=== PATIENT | female | born 1990 | race Caucasian/White ===

== ENCOUNTER → 2017-12-06 14:49 | Observation (INO) ==
--- NOTE | 2017-12-06 14:49 | Discharge Summary ---
Date of Encounter: 12/06/17 Time of Encounter: 14:48 - Discharge Diagnosis (1) 21 weeks gestation of Priority: Primary Status: Acute Comments: Follow-up with Dr. Branch on as scheduled labor parameters discussed Discharge home (2) Round ligament pain Priority: Secondary Status: Acute Comments: We discussed heat, massage, Tylenol to relieve pain - Discharge Medications Allergies/Adverse Reactions: Allergy/AdvReac Type Severity Reaction Status Date / Time No Known Allergies Allergy Verified 04/18/16 14:43 Data Procedures and tests throughout hospitalization: Laboratory Tests 12/06/17 14:30 Ur Drug Screen Interp See Below Labs on day of discharge: Labs from last 24 hours 12/06/17 14:30 Ur Drug Screen Interp See Below Date of admission: 12/06/17 13:16 Primary care physician: PCP NONE Discharging clinician: Grace Milton Anticipated date of discharge: 12/06/17 - Patient Status Disposition: Home, Self-Care Condition: Good Functional capacity at discharge: independent ambulation Overall status at discharge: patient is progressing back to baseline - Discharge Instructions Follow Up With: NONE,PCP [Primary Care Provider] - Keily Branch DO [Partnered Physician] - Additional Instructions: LABOR AND DELIVERY DISCHARGE INSTRUCTIONS Signs and Symptoms to be Reported to your Doctor Immediately: * Sudden gush, continuous or intermittent lead of fluid from vagina (note the time of gush and color of fluid) * Onset of bright red vaginal bleeding with or without pain (if you had a vaginal exam during this visit you may notice some dark red spotting. This is normal.) * Lower abdominal cramping or backache that is premenstrual-like feeling. * More than 6 contractions in one hour. * Burning during urination, having to urinate more frequently or pain in your m id-back. * A change in the baby's activity. This could be an increase or decrease in activity. * Severe headache which does not go away with tylenol. * Sudden swelling in the face, hands, arms and/or legs. * Upper abdominal pain - sometimes associated with heartburn or nausea and is not relieved by Maalox, Mylanta or Tums. * Dizziness or blurred vision or visual disturbances (seeing stars/lights). * Kick Counts One hour after a meal, lay down on one side in a quiet place. Count the number of adrienne the baby moves during an hour. If less than 6 movements, notify your physician. Diet: *Force fluids - 8-10 tall glasses of fluid per day. May include popsicles and jello. *Limit caffeine - this includes chocolate, coffee, tea, any soft drink containing such as all jaida, Jalil Yellow and Mountain Dew - Diet and Activity Activity: increase activity as tolerated Diet: regular diet Hospital Course [employer] Reason for admission: other Discharge diagnosis: other Hospital course: Ms. Isidro presents with a one-day history of right lower quadrant pain corresponding with the location of her round ligament. She denies fever, chills, nausea, vomiting, diarrhea. She verses good movement and denies leakage of fluid, vaginal bleeding, contractions. We discussed measures to relieve round ligament pain and advised her to follow up with Dr. Sarina CHATMAN. Time Attestation: Total time spent providing and/or coordinating discharge services: Time Spent: Less than 30 minutes Exam - Constitutional General appearance IM: A&O X 3 - Respiratory Respiratory exam: Present: CTAB - Cardiovascular Cardiovascular exam IM: Present: RRR, +S1, +S2 - GI/Abdominal GI/Abdominal exam IM: normal bowel sounds, no peritoneal signs - Rectal Rectal exam: deferred - Uterine Tone: Firm - Extremities Exam Extremities exam IM: Present: normal capillary refill, normal inspection, radial pulses palpable and symmetrical - Neurological Exam Neurological exam: alert, CN II-XII intact, normal gait, oriented X3, reflexes normal, no focal deficits, strengths equal and symetr throughout - VTE Reasons for not Prescribing Prophylaxis: Treatment not Indicated - Low risk for VTE
[2017-12-06 15:05] LABS: Amphetamine Screen,Urine Negative ng/mL (Cutoff=1000); Barbiturate Screen,Urine Negative ng/mL (Cutoff=200); Benzodiazepines Screen,Urine Negative ng/mL (Cutoff=200); Cannabinoid Screen,Urine Negative ng/mL (Cutoff = 50); Cocaine Screen,Urine Negative ng/mL (Cutoff= 300); Opiate Screen,Urine Negative ng/mL (Cutoff=300); Phencyclidine Screen,Urine Negative ng/mL (Cutoff=25)
== END | disposition home or self-care (01) ==
LOC: 1NENULAB
PROVIDERS: ADMIT Advanced Practice Midwife; ATTEND Advanced Practice Midwife

== ENCOUNTER 2018-04-13 05:45 | Inpatient (IN) ==
[2018-04-13] MEDS ORDERED: Metoclopramide 10 MG/2 ML VIAL IVP PRN ×2 (05:48→12:17)
[2018-04-13] MEDS ORDERED: Famotidine 20 MG/2 ML VIAL IVP PRN (05:48)
[2018-04-13] MEDS ORDERED: Naloxone 0.4 MG/ML INJ IVP PRN (05:48)
[2018-04-13] MEDS ORDERED: Ringers Solution, Lactated 1,000 ML IVC ONE (05:49)
[2018-04-13] MEDS ORDERED: Ringers Solution, Lactated 1,000 ML IVC SCH (06:00)
[2018-04-13] MEDS ORDERED: EPHEDrine 50 MG/ML VIAL ONE (06:53)
[2018-04-13] MEDS ORDERED: Bupivacaine/PF 0.75% in Dex 2 ML AMPUL INFILT ONE (06:53)
[2018-04-13] MEDS ORDERED: *HR* FentaNYL (PF) 100 MCG/2 ML VIAL ONE (06:53)
[2018-04-13] MEDS ORDERED: *HR* Morphine Sulfate/PF 10 MG/10 ML AMPUL ONE (06:53)
[2018-04-13] MEDS ORDERED: Ringers Solution, Lactated 1,000 ML ONE (06:54)
[2018-04-13 07:15] LABS: Basophils # 0.1 K/mcL (0.0-0.2); Basophils % 0.5 %; Eosinophils # 0.1 K/mcL (0.0-0.6); Eosinophils % 1.3 %; Hematocrit 33.1 % (35.3-44.9); Hemoglobin 10.9 g/dL (11.5-15.4); Lymphocytes # 2.4 K/mcL (0.6-4.6); Lymphocytes % 24.8 %; Mean Corpuscular HGB Conc 32.9 g/dL (31.6-35.5); Mean Corpuscular Volume 82.1 fL (83.0-100.0); Mean Platelet Volume 9.6 fL (9.4-12.4); Monocytes # 0.7 K/mcL (0.0-1.3); Monocytes % 7.4 %; Neutrophils # 6.2 K/mcL (1.6-8.9); Platelet Count 284 K/mcL (140-400); Red Blood Count 4.03 M/mcL (3.82-4.97); Red Cell Distribution Width 12.9 % (11.5-14.5)
[2018-04-13 07:16] LABS: Amphetamine Screen,Urine Negative ng/mL (Cutoff=1000); Barbiturate Screen,Urine Negative ng/mL (Cutoff=200)
[2018-04-13 07:17] LABS: Benzodiazepines Screen,Urine Negative ng/mL (Cutoff=300); Cannabinoid Screen,Urine Negative ng/mL (Cutoff = 50); Cocaine Screen,Urine Negative ng/mL (Cutoff= 300); Opiate Screen,Urine Negative ng/mL (Cutoff=300); Phencyclidine Screen,Urine Negative ng/mL (Cutoff=25)
--- NOTE | 2018-04-13 07:39 | History & Physical Report ---
Date of Encounter: 04/13/18 Time of Encounter: 07:38 24 Hour HP Update - Instructions Instructions: If the History and Physical is less than 30 days old and was completed prior to A.M. admission and or procedure and has NOT been updated on calendar day of procedure please complete this update prior to performing procedure. - Update Patient reports changes in Medical Condition: No Changes in examination, assessment, or condition: No Changes in Medication: No Preop tests/diagnostics Reviewed: Yes Surgery Remains Indicated: Yes Consent for Planned Operative Procedure(s) Verified: Yes - Pre-Operative Checklist Preoperative Checklist Indicated: Yes Prophylactic Antibiotic Ordered: Yes Home Medications Include Beta Jesse: No Is VTE Prophylaxis Indicated?: Yes
[2018-04-13] MEDS ORDERED: *HR* Labetalol 20 MG/4 ML SYRINGE IVP PRN (07:45)
[2018-04-13] MEDS ORDERED: *HR* HYDROmorphone (PF) 1 MG/ML SYRINGE IVP PRN (07:45)
[2018-04-13] MEDS ORDERED: Ondansetron 4 MG/2 ML VIAL IVP ONE (07:45)
[2018-04-13] MEDS ORDERED: *HR* OxyCODONE Immed Rel 5 MG TABLET PO PRN (07:45)
[2018-04-13] MEDS ORDERED: Albuterol 2.5 MG/3 ML NEBULIZER IH ONE (07:45)
[2018-04-13] MEDS ORDERED: *HR* Promethazine 25 MG/ML VIAL IVP PRN (07:45)
--- NOTE | 2018-04-13 07:47 | Anesthesia Evaluation PreOp ---
Date of Encounter: 04/13/18 Time of Encounter: 07:45 - Past History Planned Operation: Repeat C/S Cardiac History: Denies any Significant Hx Pulmonary History: Denies Any Significant HX COURT RECORDING MONITOR History: Denies Any Significant HX Other Medical History: Denies Any Significant HX Anesthesia History: No Prior Anesthetic Complications, Past Anesthesia Alcohol Use: none Drug use: none Medications and Allergies Allergy/AdvReac Type Severity Reaction Status Date / Time morphine AdvReac Itching Verified 04/13/18 07:25 - Meds/Allergy Pre-op Review Medications Reviewed: Yes Allergies Reviewed: Yes Beta Blockers on Current Med List: No Anesthesia Results - Labs 04/13/18 06:44 Anesthesia Exam O2 Sat Height 1.68 m Weight 95 kg 115/77 hr 85 rr 16 NPO (# of Hours): 8 Pain Scale: 1 Pain Scale Used: Numeric (1 - 10) - HEENT Pupil (Motor): Pupils equal Mallampati: II Teeth: Normal Oral Opening: Greater than 3 - COURT RECORDING MONITOR LOC: Oriented COURT RECORDING MONITOR Motor: Normal RUE, Normal LUE, Normal RLE, Normal LLE, Normal Face COURT RECORDING MONITOR Sensory: Normal: RUE, LUE, RLE, LLE, Face - Cardiac Rhythm: Regular Murmur: None JVD: No Carotid Bruit: No - Pulmonary Breath Sounds: bilateral Clear Respiratory Effort: Symmetrical Anesthesia Assess/Plan ASA Score: 2 Level of consciousness: Cooperative, Oriented Anesthetic Plan: General (plan b), Spinal (plan a) Autologous Blood: Yes Monitoring Plan: Standard Monitors Recovery Plan: PACU
[2018-04-13] MEDS ORDERED: Ondansetron 4 MG/2 ML VIAL ONE (07:58)
[2018-04-13] MEDS ORDERED: *HR* Oxytocin 10 UNIT/ML VIAL IM ONE (07:58)
--- NOTE | 2018-04-13 08:34 | Anesthesia Procedures ---
Date of Encounter: 04/13/18 Time of Encounter: 08:32 Procedures: Anesthesia - Epidural/Spinal Patient ID/Chart reviewed: Yes Patient examined: Yes OB Eval: Gestational age: 39 OB Eval: : 3 OB Eval: Hx Para: 1 OB Eval: Contractions: Non-stressed pattern Consent Obtained: Yes Supplemental Oxygen: Nasal Cannula Supplemental Oxygen Rate (L/min): 2 Site Prep: Aseptic Technique, Sterile prep and drape, Povidone-Iodine 1% Patient position: upright Local Anesthetic: Lidocaine 1% Amount of Local Anesthetic used: 3 Interspace Used: L4-L5 Blood: No CSF: Yes Paresthesia: No Spinal Needle Gauge: 25 (Pencan) Spinal Dose: 2.5ml .5% bupivacaine 10mcg fent .15mg duramorph Procedure: pt was okay with duramorph in the spinal (her sensitivity is itching which she had with last delivery). Pt understood that the benefits of pain control outweigh the reaction of itching that can be treated. Pt tolerated well. no complications. vss. fhr stable. SPINAL TIME = 08
--- NOTE | 2018-04-13 09:50 | OB/GYN Procedure Note ---
Section - Date of procedure: 04/13/18 Preop diagnosis: desires repeat Post-op diagnosis: same Procedure: repeat low transverse Surgeon: Keily Branch Was there an preschool assistant principal present: No Anesthesia Type: Spinal section complications: none Disposition: L&D Recovery Room Specimens: Cord blood - Infant (s) Infant A Delivery Date: 04/13/18 Delivery Time: 09:49 Presentation: dwain breech Position: unknown Route of delivery: other Gender: Male Viability: Viable Pounds: 7 Ounces: 9 Gram Weight: 3420 kg at 1 minute: 8 at 5 minutes: 9 Shoulder Dystocia: not encountered Cord: 3 umbilical vessels - Narrative Narrative: Patient was taken to the operating room and placed in supine position with left uterine displacement following the administration of spinal anesthetic. Skin was then prepped and draped in usual sterile fashion, and a timeout procedure was performed. A Pfannenstiel incision was performed through the previous surgical scar, and extended down to the fascial layer until the abdominal cavity was entered. A bladder flap was then gently created with sharp dissection. A low transverse uterine incision was performed and extended bilaterally with bandage scissors. The membranes were then ruptured with clear fluid present. A viable male was delivered from a dwain breech presentation with scores of 8 and 9 at 1 and 5 minutes respectively and the infant weighed 7 pounds and 9 ounces. The cord was clamped and cut, and the was handed to the nursery team. A sample of cord blood was obtained and the placenta was manually removed. The uterine cavity was wiped clean with wet lap sponge. The uterine incision was closed in a layered fashion with 0 Vicryl suture in a running locking fashion. Good hemostasis was noted.Inspection was then performed with good hemostasis s till noted. Due to significant adhesions, the tubes cound not be visualized therefore the tubal sterilization was not performed. The fascial layer was closed with 0 PDS Stratafix suture in a running nonlocking fashion. The subcutaneous layer was irrigated with sterile water and then closed with 4-0 Vicryl suture in a running nonlocking fashion, and continuing to close the skin in a running subcuticular fashion. A piece of Dermabond mesh was then applied over the incision site. Patient tolerated procedure well, all sponge needle and instrument counts reported as correct. Estimated blood loss was 500 mL. The urine in the Giron catheter was clear and yellow, and she was taken to recovery room in stable condition.
--- NOTE | 2018-04-13 09:56 | Anesthesia Evaluation Post Op ---
Date of Encounter: 04/13/18 Time of Encounter: 09:56 - Lungs Lungs: Clear Ascult./Percussion - Airway Airway: Non-obstructed - Cardiovascular Regular Rate, Baseline Rhythm - Mental Status Mental Status: Alert & Oriented, Answers Appropriately - Pain Pain Scale: 0 Pain Scale used: Numeric (1 - 10) - Nausea Vomiting Nausea Vomiting: Not Present - Hydration Hydration: NPO, Giron catheter Notes: 04/13/18 09:56 pt has slight itching on nose. - Discharge PostOp Status: Transfer Patient to floor
[2018-04-13] MEDS ORDERED: Oxytocin 20 units/ LR 1000 mL 20 UNIT/1,000 ML BAG IVC ONE (10:24)
[2018-04-13] MEDS: Oxytocin 20 units/ LR 1000 mL 20 UNIT/1,000 ML BAG IVC SCH ×2 (12:17→17:05)
[2018-04-13] MEDS ORDERED: Ondansetron 4 MG/2 ML VIAL IVP PRN (12:17)
[2018-04-13] MEDS ORDERED: Simethicone 80 MG TAB.CHEW PO PRN (12:17)
[2018-04-13] MEDS: Ibuprofen 600 MG TABLET PO PRN (22:35)
[2018-04-14 05:21] LABS: Basophils % 0.2 %; Eosinophils # 0.1 K/mcL (0.0-0.6); Eosinophils % 0.4 %; Hematocrit 30.6 % (35.3-44.9); Hemoglobin 10.1 g/dL (11.5-15.4); Immature Granulocytes % 0.4 % (0-4); Lymphocytes % 14.3 %; Mean Corpuscular Hemoglobin 27.1 pg (28.0-33.3); Mean Platelet Volume 9.7 fL (9.4-12.4); Monocytes # 1.1 K/mcL (0.0-1.3); Monocytes % 8.1 %; Neutrophils # 10.4 K/mcL (1.6-8.9); Platelet Count 250 K/mcL (140-400); Red Blood Count 3.73 M/mcL (3.82-4.97); Red Cell Distribution Width 12.9 % (11.5-14.5); Segmented Neutrophils % 76.6 %
--- NOTE | 2018-04-14 08:53 | OB/GYN Progress Note ---
Date of Encounter: 04/14/18 Time of Encounter: 08:51 - Assessment and Plan (1) Status post repeat low transverse section Current Visit: Yes Status: Acute Continue routine postop/ care remove dressing in AM anticipate discharge home tomorrow (2) Breast feeding status of mother Current Visit: Yes Status: Acute support prn Subjective - Subjective Principal diagnosis: Postop day 1 repeat c/s Interval history: Patient is postop/ day 1. Patient doing well. Patient reports pain is starting to increase but tolerable. Patient tolerating regular diet. Patient reports: appetite normal, voiding normally, pain well controlled, amb ulating normally [place]: doing well, nursing well Objective - Vital Signs Latest vital signs: Vital Signs Temp Pulse Pulse Resp BP Pulse Ox 04/14/18 07:37 98.4 F 79 12 104/67 98 04/14/18 04:20 98 F 78 14 98/61 98 04/13/18 23:45 98.2 F 79 14 112/74 100 04/13/18 20:40 98.0 F 83 14 106/56 98 04/13/18 15:30 97.5 F L 85 85 18 106/66 98 04/13/18 14:30 97.6 F 84 84 16 102/60 96 04/13/18 13:28 97.5 F L 81 81 18 106/68 96 04/13/18 12:58 97.5 F L 84 84 18 120/70 96 04/13/18 12:22 18 04/13/18 12:00 97.4 F L 81 16 113/66 97 Intake and Output 04/13/18 04/14/18 04/14/18 23:59 07:59 15:59 Intake Total 1600 / 1600 500 / 500 Output Total 1650 / 1650 2550 / 2550 Balance -50 / -50 -2049 / -2049 Intake: IV Fluids 1000 / 1000 Pitocin 20 unit In 1,000 ml @ 1000 / 1000 125 mls/hr IVC .Q8H [facility] Rx#: [id number] Oral 600 / 600 500 / 500 Output: Urine 100 / 100 Catheter 1650 / 1650 2450 / 2450 Other: Weight 94.347 kg Patient Weight 04/14/18 23:59 Weight 94.347 kg - Exam Lungs: bilateral: normal Extremities: Present: normal Abdomen: Present: normal appearance, soft Incision: Present: normal, dry, intact, dressed (medipore dressing) Fundal Height: 1 (U/1) - Labs Labs: Laboratory Results - last 24 hr 04/13/18 04/14/18 06:44 05:03 WBC 13.6 H RBC 3.73 L Hgb 10.1 L Hct 30.6 L MCV 82.0 L MCH 27.1 L MCHC 33.0 RDW 12.9 Plt Count 250 MPV 9.7 Immature Gran % 0.4 Seg Neutrophils % 76.6 Lymphocytes % 14.3 Monocytes % 8.1 Eosinophils % 0.4 Basophils % 0.2 Neutrophils # 10.4 H Lymphocytes # 2.0 Monocytes # 1.1 Eosinophils # 0.1 Basophils # 0.0 T.pallidum Ab Interpret Negative
[2018-04-14] MEDS: Prenatal Vit/FA 1 EACH TABLET PO SCH (10:07)
[2018-04-14] MEDS: Ibuprofen 600 MG TABLET PO PRN ×2 (10:08→16:26)
[2018-04-14] MEDS ORDERED: Lanolin 7 G OINT...G. TP PRN (18:17)
[2018-04-14] MEDS: *HR* OxyCODONE/APAP 5/325 TABLET PO PRN (21:38)
[2018-04-15] MEDS: Ibuprofen 600 MG TABLET PO PRN (03:38)
[2018-04-15] MEDS: Prenatal Vit/FA 1 EACH TABLET PO SCH (08:17)
[2018-04-15 08:35] VITALS: BP 109/71
--- NOTE | 2018-04-15 09:27 | Discharge Summary ---
Date of Encounter: 04/15/18 Time of Encounter: 09:23 - Discharge Diagnosis (1) Status post repeat low transverse section Priority: Primary (09) Status: Acute Comments: Patient meeting day two milestones. Pain well-controlled with prescribed medications. Voiding without difficulty. No bowel movement yet. Anticipate discharge today (2) Breast feeding status of mother Priority: Secondary Status: Acute Comments: support as needed Breast pump prescription given - Discharge Medications Prescriptions: New RX: Ibuprofen [Motrin] 600 mg PO Q6HR PRN #60 tablet PRN Reason: Cramping Breast Pump [BREAST PUMP] 1 each .ROUTE AD #1 each RX: Docusate [Colace] 100 mg PO BID capsule RX: Ferrous Sulfate 325 mg PO DAILY tablet RX: Lanolin [Lansinoh] 1 appl TP TID PRN oint...g. PRN Reason: nipple cracking RX: OxyCODONE/APAP 5/325 [Percocet 5/325 MG] 1 each PO Q6H PRN 7 Days #28 tablet PRN Reason: Moderate pain 4-6 RX: Simethicone [Gas-X] 80 mg PO TID PRN tab.chew PRN Reason: Dyspepsia Home Medications: Breast Pump [BREAST PUMP] 1 each .ROUTE AD #1 each 04/15/18 [Rx] Docusate [Colace] 100 mg PO BID capsule 04/15/18 [Rx] Ferrous Sulfate 325 mg PO DAILY tablet 04/15/18 [Rx] Ibuprofen [Motrin] 600 mg PO Q6HR PRN #60 tablet 04/15/18 [Rx] Lanolin [Lansinoh] 1 appl TP TID PRN oint...g. 04/15/18 [Rx] OxyCODONE/APAP 5/325 [Percocet 5/325 MG] 1 each PO Q6H PRN 7 Days #28 tablet 04/15/18 [Rx] Simethicone [Gas-X] 80 mg PO TID PRN tab.chew 04/15/18 [Rx] Allergies/Adverse Reactions: Allergy/AdvReac Type Severity Reaction Status Date / Time morphine AdvReac Itching Verified 04/13/18 07:25 Data Procedures and tests throughout hospitalization: Laboratory Tests 04/13/18 04/13/18 04/13/18 06:44 06:44 06:44 WBC 9.6 RBC 4.03 Hgb 10.9 L Hct 33.1 L MCV 82.1 L MCH 27.0 L MCHC 32.9 RDW 12.9 Plt Count 284 MPV 9.6 Immature Gran % 1.0 Seg Neutrophils % 65.0 Lymphocytes % 24.8 Monocytes % 7.4 Eosinophils % 1.3 Basophils % 0.5 Neutrophils # 6.2 Lymphocytes # 2.4 Monocytes # 0.7 Eosinophils # 0.1 Basophils # 0.1 Urine Opiates Screen Negative Ur Barbiturates Screen Negative Ur Phencyclidine Scrn Negative Ur Amphetamines Screen Negative U Benzodiazepines Scrn Negative Urine Cocaine Screen Negative U Marijuana (THC) Screen Negative Ur Drug Screen Interp See Below T.pallidum Ab Interpret Hep Bs Antigen Nonreactive 04/13/18 04/14/18 06:44 05:03 WBC 13.6 H RBC 3.73 L Hgb 10.1 L Hct 30.6 L MCV 82.0 L MCH 27.1 L MCHC 33.0 RDW 12.9 Plt Count 250 MPV 9.7 Immature Gran % 0.4 Seg Neutrophils % 76.6 Lymphocytes % 14.3 Monocytes % 8.1 Eosinophils % 0.4 Basophils % 0.2 Neutrophils # 10.4 H Lymphocytes # 2.0 Monocytes # 1.1 Eosinophils # 0.1 Basophils # 0.0 Urine Opiates Screen Ur Barbiturates Screen Ur Phencyclidine Scrn Ur Amphetamines Screen U Benzodiazepines Scrn Urine Cocaine Screen U Marijuana (THC) Screen Ur Drug Screen Interp T.pallidum Ab Interpret Negative Hep Bs Antigen Date of admission: 04/13/18 05:45 Primary care physician: PCP NONE Discharging clinician: Beverly Houston Anticipated date of discharge: 04/15/18 - Patient Status Disposition: Home, Self-Care Condition: Good Functional capacity at discharge: independent ambulation Overall status at discharge: patient is progressing back to baseline - Discharge Instructions Follow Up With: NONE,PCP [Primary Care Provider] - - Diet and Activity Activity: resume usual activities as tolerated Diet: regular diet Hospital Course Reason for admission: section Delivery: section Episiotomy: none Laceration: none Other procedures: none complications: none Discharge diagnosis: IUP at term delivered baby: male Hospital course: Date of procedure: 04/13/18 Preop diagnosis: desires repeat Post-op diagnosis: same Procedure: repeat low transverse Surgeon: Keily Branch Was there an physical laboratory assistant present: No Anesthesia Type: Spinal section complications: none Disposition: L&D Recovery Room Specimens: Cord blood - (s) A Delivery Date: 04/13/18 Delivery Time: 09:49 Presentation: dwain breech Position: unknown Route of delivery: other Gender: Male Viability: Viable Pounds: 7 Ounces: 9 Gram Weight: 3420 kg at 1 minute: 8 at 5 minutes: 9 Shoulder Dystocia: not encountered Cord: 3 umbilical vessels - Narrative Narrative: Patient was taken to the operating room and placed in supine position with left uterine displacement following the administration of spinal anesthetic. Skin was then prepped and draped in usual sterile fashion, and a timeout procedure was performed. A Pfannenstiel incision was performed through the previous surgical scar, and extended down to the fascial layer until the abdominal cavity was entered. A bladder flap was then gently created with sharp dissection. A low transverse uterine incision was performed and extended bilaterally with bandage scissors. The membranes were then ruptured with clear fluid present. A viable male infant was delivered from a dwain breech presentation with scores of 8 and 9 at 1 and 5 minutes respectively and the weighed 7 pounds and 9 ounces. The cord was clamped and cut, and the infant was handed to the nursery team. A sample of cord blood was obtained and the placenta was manually removed. The uterine cavity was wiped clean with wet lap sponge. The uterine incision was closed in a layered fashion with 0 Vicryl suture in a running locking fashion. Good hemostasis was noted.Inspection was then performed with good hemostasis still noted. Due to significant adhesions, the tubes cound not be visualized therefore the tubal sterilization was not performed. The fascial layer was closed with 0 PDS Stratafix suture in a running nonlocking fashion. The subcutaneous layer was irrigated with sterile water and then closed with 4-0 Vicryl suture in a running nonlocking fashion, and continuing to close the skin in a running subcuticular fashion. A piece of Dermabond mesh was then applied over the incision site. Patient tolerated procedure well, all sponge needle and instrument counts reported as correct. Estimated blood loss was 500 mL. The urine in the Giron catheter was clear and yellow, and she was taken to recovery room in stable condition. Time Attestation: Total time spent providing and/or coordinating discharge services: Time Spent: Less than 30 minutes - VTE Documentation of Mechanical Device: Intermittent pneumatic compression device Exam - Constitutional Vitals: Temp Pulse Resp BP Pulse Ox 97.6 F 82 18 109/71 98 04/15/18 08:15 04/15/18 08:15 04/15/18 08:15 04/15/18 08:15 04/15/18 08:15 General appearance IM: A&O X 3, pleasant, no acute distress, answers questions appropriately - Respiratory Respiratory exam: Present: CTAB - Cardiovascular Cardiovascular exam IM: Present: RRR, +S1 - GI/Abdominal GI/Abdominal exam IM: normal bowel sounds, soft Incision: normal - Rectal Rectal exam: deferred - External exam: normal external exam Uterine Tone: Firm Uterus Position: 1 Finger Below Umbilicus, Midline - Extremities Exam Extremities exam IM: Present: full ROM, normal capillary refill, normal inspection - Neurological Exam Neurological exam: alert, normal gait, oriented X3
[2018-04-15] MEDS: *HR* OxyCODONE/APAP 5/325 TABLET PO PRN (10:50)
[2018-04-15] MEDS ORDERED: Oxytocin 20 units/ LR 1000 mL 20 UNIT/1,000 ML BAG IVC ONE (11:20)
[2018-04-15] MEDS ORDERED: Ringers Solution, Lactated 1,000 ML ONE (11:20)
== END 2018-04-15 14:05 | disposition home or self-care (01) | DRG 540 ==
LOC: 1NENULAB 05:45 → 1NENUOBS 12:15